=== PATIENT | female | born 2000 | race African-American/Black ===

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

== ENCOUNTER 2019-06-05 16:47 | Inpatient (IN) | payer MEDICAID ==
[~2019-06-05] VITALS: Ht 162.6 cm; Wt 72.6 kg
[2019-06-05] MEDS ORDERED: LACTATED RINGERS 1,000 ML IV SCH (16:59)
[2019-06-05] MEDS ORDERED: DEXT 5%/LR + PITOCIN 20UNITS/L 1,000 ML IV SCH ×2 (16:59→18:15)
[2019-06-05] MEDS ORDERED: MISOPROSTOL 100MCG TABLET VG SCH (17:00)
[2019-06-05] MEDS ORDERED: CARBOPROST TROMETHAMINE 250 MCG/ML AMPUL IM PRN (17:00)
[2019-06-05] MEDS ORDERED: LIDOCAINE HCL 1% 20ML VIAL (Pyxis) INJ INFIL SCH (17:00)
[2019-06-05] MEDS ORDERED: NALOXONE HCL 0.4 MG/ML 1ML VIAL IM PRN (17:00)
[2019-06-05] MEDS ORDERED: BUTORPHANOL TARTRATE 2 MG/ML VIAL IV PRN (17:00)
[2019-06-05] MEDS ORDERED: METHYLERGONOVINE MALEATE 0.2 MG/ML IM PRN (17:00)
[2019-06-05 17:57] LABS: BASOPHILS % 0.4 % (0.0-2.0); EOSINOPHILS % 0.2 % (0.0-5.0); HEMATOCRIT. 35.2 % (36.0-48.0); HEMOGLOBIN. 10.9 g/dL (12.0-16.0); LYMPHOCYTES % 17.4 % (20.0-50.0); MEAN CORPUSCULAR HEMOGLOBIN 23.5 pg (28.0-32.0); MEAN CORPUSCULAR VOLUME 75.8 fL (81.0-99.0); MEAN PLATELET VOLUME 10.5 fl (7.4-10.4); MONOCYTES % 3.4 % (2.0-8.0); NEUTROPHILS % 78.6 % (40.0-76.0); PLATELET 229 x1000/uL (130-400); RED BLOOD CELL COUNT 4.65 mill/uL (4.2-5.4); RED CELL DISTRIBUTION WIDTH 17.5 % (11.6-14.6)
[2019-06-05] MEDS ORDERED: PENICILLIN G POTASSIUM 5 MMU in DEXT 5% WATER 100 ML IV NR (18:00)
[2019-06-05 18:04] LABS: INR 0.9; PARTIAL THROMBOPLASTIN TIME 28.1 sec (23.4-31.0); PROTHROMBIN TIME 9.2 sec (9.6-11.0)
[2019-06-05 18:05] LABS: CHLORIDE 111 mEq/L (98-107)
[2019-06-05 18:12] LABS: CLARITY URINE CLOUDY (CLEAR); COLOR URINE YELLOW (YELLOW); KETONES URINE 2+ (NEGATIVE); LEUKOCYTE ESTERASE URINE 2+ (NEGATIVE); NITRITE URINE POSITIVE (NEGATIVE); OCCULT BLOOD URINE 2+ (NEGATIVE); PH URINE 7.5 (4.5-8.0); PROTEIN URINE 1+ (NEGATIVE); SPECIFIC GRAVITY URINE 1.022 (1.005-1.030)
[2019-06-05] MEDS ORDERED: HEMORRHOIDAL SUPP PR PRN (18:15)
[2019-06-05] MEDS ORDERED: GLYCERIN/WITCH HAZEL LEAF MEDICATED PAD TOP PRN (18:15)
[2019-06-05] MEDS ORDERED: IBUPROFEN 400MG TABLET PO PRN (18:15)
[2019-06-05] MEDS ORDERED: DIPHENHYDRAMINE 25MG CAPSULE PO PRN (18:15)
[2019-06-05] MEDS ORDERED: BISACODYL 10MG SUPP PR PRN (18:15)
[2019-06-05] MEDS ORDERED: LANOLIN OINT 7GM TUBE TOP PRN (18:15)
[2019-06-05] MEDS ORDERED: ACETAMINOPHEN WITH CODEINE 300/30MG TABLET PO PRN (18:15)
[2019-06-05 18:25] LABS: *BARBITURATES SCREEN URINE NEGATIVE (NEGATIVE); *BENZODIAZEPINES SCREEN URINE NEGATIVE (NEGATIVE); *COCAINE SCREEN URINE NEGATIVE (NEGATIVE); METHADONE URINE SCREEN NEGATIVE (NEGATIVE)
[2019-06-05 18:26] LABS: CANNABINOID URINE SCREEN NEGATIVE (NEGATIVE); OPIATES URINE SCREEN NEGATIVE (NEGATIVE); PHENCYCLIDINE URINE SCREEN NEGATIVE (NEGATIVE)
[2019-06-05 18:27] LABS: *AMPHETAMINES SCREEN URINE PRESUMTIVE POSITIVE (NEGATIVE)
[2019-06-05 18:31] LABS: HEPATITIS B SURFACE ANTIGEN NEGATIVE
[2019-06-05 21:00] VITALS: BP 123/64
[2019-06-05] MEDS ORDERED: PENICILLIN G POTASSIUM 2.5 MMU in DEXTROSE 5% WATER 50 ML IV SCH (21:30)
[2019-06-05] MEDS: DOCUSATE SODIUM 100MG CAPSULE PO SCH (21:59)
[2019-06-05] MEDS: NITROFURANTOIN 100MG M/M CAPSULE PO SCH (22:00)
[2019-06-06] VITALS: BP 125/68
[2019-06-06] MEDS: IBUPROFEN 800MG TABLET PO PRN ×3 (03:30→21:18)
[2019-06-06 05:58] VITALS: BP 121/67
[2019-06-06 08:20] VITALS: BP 115/62
[2019-06-06] MEDS: PRENATAL VIT/FE FUMARATE/FA TABLET PO SCH (09:37)
[2019-06-06] MEDS: NITROFURANTOIN 100MG M/M CAPSULE PO SCH ×2 (09:37→21:14)
[2019-06-06] MEDS: FERROUS SULFATE 325MG TABLET PO SCH ×3 (09:37→17:30)
[2019-06-06 10:08] LABS: BASOPHILS % 0.4 % (0.0-2.0); EOSINOPHILS % 0.3 % (0.0-5.0); HEMATOCRIT. 31.4 % (36.0-48.0); HEMOGLOBIN. 10.1 g/dL (12.0-16.0); MEAN CORPUSCULAR HEMOGLOBIN 23.8 pg (28.0-32.0); MEAN CORPUSCULAR VOLUME 73.9 fL (81.0-99.0); MEAN PLATELET VOLUME 10.9 fl (7.4-10.4); MONOCYTES % 4.6 % (2.0-8.0); NEUTROPHILS % 80.7 % (40.0-76.0); PLATELET 202 x1000/uL (130-400); RED BLOOD CELL COUNT 4.25 mill/uL (4.2-5.4)
[2019-06-06 16:36] VITALS: BP 123/79
[2019-06-06 19:40] VITALS: BP 107/54
[2019-06-06] MEDS: DOCUSATE SODIUM 100MG CAPSULE PO SCH (21:14)
[2019-06-07 04:00] VITALS: BP 127/76
[2019-06-07] MEDS ORDERED: IBUP-2030 PO (06:59)
[2019-06-07 08:00] VITALS: BP 124/75
[2019-06-07] MEDS: PRENATAL VIT/FE FUMARATE/FA TABLET PO SCH (08:03)
[2019-06-07] MEDS: FERROUS SULFATE 325MG TABLET PO SCH ×3 (08:04→16:35)
[2019-06-07] MEDS: IBUPROFEN 800MG TABLET PO PRN ×2 (08:04→15:52)
[2019-06-07] MEDS: NITROFURANTOIN 100MG M/M CAPSULE PO SCH (08:07)
[2019-06-07 15:52] VITALS: BP 127/76
== END 2019-06-07 19:00 | disposition home or self-care (01) | DRG 560 ==
LOC: OBSVTOIN 16:47 → 8 EST LDRP 16:47 → 8EST 20:37
PROVIDERS: ADMIT Specialist; ATTEND Specialist
PROC: 10E0XZZ Delivery of Products of Conception, External Approach (ICD-10-PCS; principal; 2019-06-06)
DX: O36.8330 Maternal care for abnormalities of the fetal heart rate or rhythm, third trimester, not applicable or unspecified (principal); O75.3 Other infection during labor; O99.324 Drug use complicating childbirth; O99.02 Anemia complicating childbirth; J45.909 Unspecified asthma, uncomplicated; O99.52 Diseases of the respiratory system complicating childbirth; D64.9 Anemia, unspecified; F15.10 Other stimulant abuse, uncomplicated; Z37.0 Single live birth; Z59.0 Homelessness; Z3A.37 37 weeks gestation of pregnancy
CPT/HCPCS: 36415; 76805; 80053; 80305; 80307; 81003; 85025; 86592; 86703; 86762; 86850; 86900; 87077; 87186; 87340; 99281; J0595; J2540; J2590; J3490; J7060

== ENCOUNTER 2020-02-21 23:38 | Emergency (ER) | payer MEDICAID ==
[~2020-02-21] VITALS: Ht 162.6 cm; Wt 57.0 kg
[~2020-02-21 23:38] MED LIST: IBUP-2030 PO
[2020-02-22] VITALS: BP 144/88
[2020-02-22] MEDS ORDERED: HYDROCODONE/ACETAMINOPHEN 5/325MG TABLET PO ONE
[2020-02-22] MEDS ORDERED: ONDANSETRON 4MG ODT PO ONE
== END 2020-02-22 01:43 | disposition home or self-care (01) ==
LOC: ER 23:38
DX: S99.821A Other specified injuries of right foot, initial encounter (principal); V03.99XA Pedestrian with other conveyance injured in collision with car, pick-up truck or van, unspecified whether traffic or nontraffic accident, initial encounter; Y93.55 Activity, bike riding; Y92.89 Other specified places as the place of occurrence of the external cause
CPT/HCPCS: 29515; 73630; 99283; Q0162